=== PATIENT | female | born 1945 | race Caucasian/White ===

== ENCOUNTER 2017-04-04 06:51 | Emergency (ER) | payer MEDICARE ==
[~2017-04-04] VITALS: Ht 165.1 cm; Wt 58.0 kg
[~2017-04-04 06:51] MED LIST: BUPR-197 PO; CEPH500C3 PO; DIOV40TA PO; DIPH50TA PO; ESTR1 PO; LEVO.125 PO; NEXI40CA PO; TOPI25 PO; XANA0.5T PO; ZITH250T PO
[2017-04-04 06:58] VITALS: BP 130/59; PULSE 100; RESP 16; TEMP 98.9; O2SAT 95
[2017-04-04] MEDS ORDERED: SODIUM CHLORIDE 0.9% FLUSH 10 ML FLUSH IVF PRN (07:15)
--- NOTE | 2017-04-04 07:15 | PD ---
HPI Chief Complaint: Cold / Flu Symptoms Time Seen by Provider: 07:09 Travel History International Travel<30 days: Yes Contact w/Intl Traveler<30days: Yes Name of Country Traveled to: [facility] Traveled to known affect area: No History of Present Illness HPI patient started with an occasional cough about 2 weeks ago for which she took zpak. over the last 2 weeks she had been traveling to [facility], [place], [place] and [place] and through it all continued with cough, now deeper and more frequest , dry/nonproductive, body aches, with assoc n/v. no aggravating/alleviating factors noted. afebrile thus far. pcp is dr tayler vazquez [facility] Past Medical History Arthritis: No Asthma: Yes (CHILDHOOD) Blood Disorders: No Depression: Yes Heart Rhythm Problems: No Cancer: No Cardiovascular Problems: Yes (htn on meds) High Cholesterol: No Chest Pain: No Congestive Heart Failure: No COPD: No Cerebrovascular Accident: No Diabetes: No Diminished Hearing: No Endocrine: Yes Gastrointestinal Disorders: Yes (HIATAL HERNIA REFLUX) GERD: Yes Genitourinary: Yes (INTERSTEM SX (INCONTINENCE)) Headaches: No Hepatitis: No Hiatal Hernia: Yes Hypertension: Yes Immune Disorder: No Implanted Vascular Access Dvce: Yes Kidney Stones: No Musculoskeletal: Yes Neurologic: No Psychiatric: Yes Reproductive: Yes (HYSTERECTOMY) Respiratory: Yes (CHILDHOOD ASTHMA) Immunizations Current: Yes Migraines: No Myocardial Infarction: No Renal Failure: No Seizures: No Sleep Apnea: No Thyroid Disease: Yes Ulcer: No Dilation and Curettage (D&C): Yes Past Surgical History Abdominal Surgery: Yes (HERNIA REPAIR LAPAROSCOPY) Appendectomy: No Body Medical Devices: RODS/SCREWS IN BACK Cardiac Surgery: No Cholecystectomy: No Ear Surgery: No Endocrine Surgery: No Eye Surgery: Yes (BLEPHAROPLASTY) Genitourinary Surgery: No Gynecologic Surgery: Yes (HYSTERECTOMY BOTOX BLADDER WITH STRETCHING INTERSTEM) Hysterectomy: Yes Neurologic Surgery: No Oral Surgery: Yes (TONSILECTOMY) Thoracic Surgery: No Tonsillectomy: Yes Other Surgery: Yes ([facility] HX BREAST TUMOR RHINOPLASTY) Social History Alcohol Use: Yes (OCCASSIONAL) Tobacco Use: No Substance Use: No Allergies-Medications (Allergen,Severity, Reaction): Coded Allergies: Sulfa (Sulfonamide Antibiotics) (Unverified Allergy, Severe, THROAT CLOSES , 04/04/17) celecoxib (Unverified Allergy, Severe, DIFFICULTY BREATHING, 04/04/17) gabapentin (Unverified Allergy, Severe, SPEECH, DIZZY, 04/04/17) metoclopramide (Unverified Allergy, Severe, DIFFICULTY BREATHING,MUSCLE SPASMS, 04/04/17) naproxen (Unverified Allergy, Severe, Anaphylaxis, 04/04/17) nitrofurantoin (Unverified Allergy, Severe, RASH, 04/04/17) oxycodone (Unverified Allergy, Severe, RASH/BREATHING PROBLEMS, 04/04/17) prochlorperazine (Unverified Allergy, Severe, MUSCLE SPASM, 04/04/17) propoxyphene (Unverified Allergy, Severe, DIFFICULTY BREATHING, 04/04/17) tapentadol (Unverified Allergy, Severe, RASH, 04/04/17) tramadol (Unverified Allergy, Severe, DIFFICULTY BREATHING, 04/04/17) acetaminophen (Unverified Allergy, Intermediate, Headache, 04/04/17) ciprofloxacin (Unverified Allergy, Intermediate, MUSCLE PAIN, 04/04/17) codeine (Unverified Allergy, Intermediate, Headache, 04/04/17) doxycycline (Verified Allergy, Intermediate, RASH ON LEG, 04/04/17) eszopiclone (Verified Allergy, Intermediate, HEADACHE, ACID TASTE, HALLUCINATIONS, AGITATION, 04/04/17) hydrocodone (Unverified Allergy, Intermediate, RASH, 04/04/17) ibuprofen (Unverified Allergy, Intermediate, Nausea/Vomiting, 04/04/17) latex (Unverified Allergy, Intermediate, RASH, 04/04/17) meperidine (Unverified Allergy, Intermediate, RASH, SLIGHT FEVER, 04/04/17 ) pentazocine (Unverified Allergy, Intermediate, NAUSEA, DIZZY, HEADACHE , 04/04/17) ranibizumab (Verified Allergy, Intermediate, HEADACHE, ACID TASTE, ) adhesive (Unverified Allergy, Mild, RASH, 04/04/17) bacitracin (Unverified Allergy, Mild, RASH, 04/04/17) corn (Verified Allergy, Unknown, 04/04/17) egg (Verified Allergy, Unknown, 04/04/17) vancomycin (Unverified Allergy, Unknown, RASH, 04/04/17) zolpidem (Unverified Adverse Reaction, Intermediate, Nausea/Vomiting, ) Uncoded Allergies: LAVENDER (Allergy, Intermediate, RASH., 04/04/17) JALEN (Allergy, Intermediate, RASH., 04/04/17) ALOE (Allergy, Mild, Rash., 04/04/17) Reported Meds & Prescriptions Reported Meds & Active Scripts Active Zofran Odt (Ondansetron Odt) 4 Mg Tab 4 Mg SL Q6HR PRN Tamiflu (Oseltamivir Phosphate) 75 Mg Cap 75 Mg PO BID 5 Days Reported Estrace Vaginal (Estradiol) 0.01% Cream 1 Appl VAGINAL 3 TIMES WEEKLY Desoximetasone Topical (Desoximetasone) 0.25% Cream 1 Applic TOPICAL BID PRN Elidel 1% Topical (Pimecrolimus 1% Topical) 30 Gram Cream 1 Applic TP DIRECTED PRN Hyoscyamine (Hyoscyamine Sulfate) 0.125 Mg Tab 0.125 Mg PO Q6H PRN Maxalt (Rizatriptan Benzoate) 10 Mg Tab 10 Mg P-ARTICULR DAILY PRN Cormax Scalp Topical (Clobetasol Propionate) 0.05% Soln 1 Applic TOPICAL BID Rogaine For Women Topical (Minoxidil Topical) 2 % Soln 1 Ml TOPICAL BID Folic Acid 0.4 Mg Tab 400 Mcg PO DAILY Biotin 5 Mg Cap 5 Mg PO DAILY Tums (Calcium Carbonate (Antacid)) 500 Mg Chew 1,000 Mg CHEW DAILY Centrum Silver Women Tablet (Multivit-Min/Iron/Folic/Lutein) 8 Mg Iron-400 Mcg- 300 Mcg Tablet 1 Tab PO DAILY Plaquenil (Hydroxychloroquine Sulfate) 200 Mg Tab 200 Mg PO DAILY Take with food Lexapro (Escitalopram Oxalate) 10 Mg Tab 10 Mg PO DAILY Neurontin (Gabapentin) 100 Mg Cap 300 Mg PO BID Nexium (Esomeprazole DR) 40 Mg Capdr 40 Mg PO DAILY Xanax (Alprazolam) 0.5 Mg Tab 1.5 Mg PO HS Bupropion HCl ER 24 HR (Bupropion HCl) 300 Mg Tab 300 Mg PO DAILY Estrace (Estradiol) 1 Mg Tab 1 Mg PO DAILY Levothyroxine (Levothyroxine Sodium) 88 Mcg Tab 88 Mcg PO DAILY Topamax (Topiramate) 50 Mg Tab 100 Mg PO HS Review of Systems Except as stated in HPI: all other systems reviewed are Neg General / Constitutional: No: Fever Eyes: No: Visual changes HENT: No: Headaches Cardiovascular: No: Chest Pain or Discomfort Respiratory: Positive: Cough Gastrointestinal: Positive: Nausea, Vomiting Genitourinary: No: Dysuria Musculoskeletal: Positive: Myalgias Skin: No Rash Neurologic: No: Weakness Psychiatric: No: Depression Endocrine: No: Polydipsia Hematologic/Lymphatic: No: Easy Bruising Physical Exam Narrative GENERAL: SKIN: Warm and dry. HEAD: Atraumatic. Normocephalic. EYES: Pupils equal and round. No scleral icterus. No injection or drainage. ENT: No nasal bleeding or discharge. Mucous membranes pink and moist. NECK: Trachea midline. No JVD. CARDIOVASCULAR: Regular rate and rhythm. RESPIRATORY: No accessory muscle use. bilateral ronchi, no tachypnea, GASTROINTESTINAL: Abdomen soft, non-tender, nondistended. Hepatic and splenic margins not palpable. MUSCULOSKELETAL: Extremities without clubbing, cyanosis, or edema. No obvious deformities. NEUROLOGICAL: Awake and alert. No obvious cranial nerve deficits. Motor grossly within normal limits. Five out of 5 muscle strength in the arms and legs. Normal speech. PSYCHIATRIC: Appropriate mood and affect; insight and judgment normal. Data Data Last Documented VS Vital Signs Date Time Temp Pulse Resp B/P (MAP) Pulse Ox O2 Delivery O2 Flow Rate FiO2 04/04/17 08:02 93 16 126/46 (72) 94 Room Air 04/04/17 06:58 98.9 Orders Orders Complete Blood Count With Diff (04/04/17 07:09) Comprehensive Metabolic Panel (04/04/17 07:09) Lactic Acid Sepsis Protocol (04/04/17 07:09) Influenzae A/B Antigen (04/04/17 07:09) Blood Culture (04/04/17 07:09) Chest, Single Ap (04/04/17 07:09) Ecg Monitoring (04/04/17 07:09) Iv Access Insert/Monitor (04/04/17 07:09) Oximetry (04/04/17 07:09) Sodium Chloride 0.9% Flush (Ns Flush) (04/04/17 07:15) Sodium Chlor 0.9% 1000 Ml Inj (Ns 1000 M (04/04/17 07:30) Ondansetron Inj (Zofran Inj) (04/04/17 07:30) Ct Pulmonary Angiogram (04/04/17 07:42) Oseltamivir (Tamiflu) (04/04/17 08:15) Iohexol 350 Inj (Omnipaque 350 Inj) (04/04/17 08:44) Labs Laboratory Tests Test 04/04/17 07:25 04/04/17 07:30 White Blood Count 10.4 TH/MM3 Red Blood Count 4.48 MIL/MM3 Hemoglobin 13.0 GM/DL Hematocrit 39.3 % Mean Corpuscular Volume 87.7 FL Mean Corpuscular Hemoglobin 29.0 PG Mean Corpuscular Hemoglobin Concent 33.1 % Red Cell Distribution Width 13.1 % Platelet Count 224 TH/MM3 Mean Platelet Volume 8.4 FL Neutrophils (%) (Auto) 80.1 % Lymphocytes (%) (Auto) 7.7 % Monocytes (%) (Auto) 12.0 % Eosinophils (%) (Auto) 0.1 % Basophils (%) (Auto) 0.1 % Neutrophils # (Auto) 8.4 TH/MM3 Lymphocytes # (Auto) 0.8 TH/MM3 Monocytes # (Auto) 1.2 TH/MM3 Eosinophils # (Auto) 0.0 TH/MM3 Basophils # (Auto) 0.0 TH/MM3 CBC Comment DIFF FINAL Differential Comment Blood Urea Nitrogen 16 MG/DL Creatinine 1.00 MG/DL Random Glucose 87 MG/DL Total Protein 7.3 GM/DL Albumin 3.5 GM/DL Calcium Level 8.5 MG/DL Alkaline Phosphatase 61 U/L Aspartate Amino Transf (AST/SGOT) 14 U/L Alanine Aminotransferase (ALT/SGPT) 20 U/L Total Bilirubin 0.3 MG/DL Sodium Level 137 MEQ/L Potassium Level 3.5 MEQ/L Chloride Level 104 MEQ/L Carbon Dioxide Level 22.9 MEQ/L Anion Gap 10 MEQ/L Estimat Glomerular Filtration Rate 55 ML/MIN Lactic Acid Level 1.6 mmol/L [facility] Medical Decision Making Medical Screen Exam Complete: Yes Emergency Medical Condition: Yes Medical Record Reviewed: Yes Interpretation(s) pulse ox: on room air, good plethwave, normal reading of 96% Differential Diagnosis pna v flu v bronchitis v pe v pericardial effusion Narrative Course patient cxr neg for pna, flu positive and explains all symptoms. ct chest neg for pe, pericaridial or pleural effusion however some early infiltrates on LLL along with questionable mass like features which was explained to patient and , advised of recc to repeat in 6 months. Diagnosis Primary Impression: Influenza Patient Instructions: General Instructions, Influenza (DC) Additional Instructions: please make sure you share ct findings with dr vazquez so he will order a follow up ct chest with contrast in 6months. Scripts Ondansetron Odt (Zofran Odt) 4 Mg Tab 4 MG SL Q6HR Y for Nausea/Vomiting, #30 TAB 0 Refills Prov: Naeem Malave MD 04/04/17 Oseltamivir (Tamiflu) 75 Mg Cap 75 MG PO BID for Mgmt Viral Infection for 5 Days, #10 CAP 0 Refills Prov: Naeem Malave MD 04/04/17 Disposition: 01 DISCHARGE HOME Condition: Stable Naeem Malave MD Apr 04, 2017 07:15
--- NOTE | 2017-04-04 07:29 | RADRPT ---
EXAM DATE/TIME: 04/04/2017 07:13 [facility] COMPARISON: No previous studies available for comparison. INDICATIONS : Flu like symptoms x 2 weeks. MEDICAL HISTORY : Hypertension. Hiatal hernia. Gastroesophageal reflux disease. Asthma. Pneumonia. Thyroid disease. SURGICAL HISTORY : Tonsillectomy. Hemorrhoidectomy. Hernia repair. C & C. Lumbar surgery. Rotator cuff. Knee. ENCOUNTER: Initial ACUITY: 2 weeks PAIN SCORE: 5/10 LOCATION: chest FINDINGS: A single view of the chest demonstrates the lungs to be symmetrically aerated without evidence of mas s, infiltrate or effusion. The cardiomediastinal contours are unremarkable. Mild right thoracolumba r scoliosis. CONCLUSION: The lungs are clear. Rod Charles MD on April 04, 2017 at 7:26 Board Certified Radiologist. This report was verified electronically.
[2017-04-04] MEDS ORDERED: ONDANSETRON HCL 4 MG/2 ML VIAL IV PUSH ONE (07:30)
[2017-04-04] MEDS ORDERED: SODIUM CHLOR 0.9% 1000 ML INJ 1,000 ML IV ONE (07:30)
[2017-04-04] MEDS ORDERED: ALPR.5 PO (07:48)
[2017-04-04] MEDS ORDERED: ELID1CRE TP (07:48)
[2017-04-04] MEDS ORDERED: [UNRECOGNIZED DRUG - CODE] TOPICAL (07:48)
[2017-04-04] MEDS ORDERED: CLOB-23 TOPICAL (07:48)
[2017-04-04] MEDS ORDERED: MAXA10TA2 P-ARTICULR (07:48)
[2017-04-04] MEDS ORDERED: PLAQ200T PO (07:48)
[2017-04-04] MEDS ORDERED: LEVO88TA2 PO (07:48)
[2017-04-04] MEDS ORDERED: LEXA10TA PO (07:48)
[2017-04-04] MEDS ORDERED: HYOS1TAB9 PO (07:48)
[2017-04-04] MEDS ORDERED: FOLI400T PO (07:48)
[2017-04-04] MEDS ORDERED: TOPA50TA7 PO (07:48)
[2017-04-04] MEDS ORDERED: ESTR1 PO (07:48)
[2017-04-04] MEDS ORDERED: BUPR300T PO (07:48)
[2017-04-04] MEDS ORDERED: NEXI40CA PO (07:48)
[2017-04-04] MEDS ORDERED: MULT1TAB61 PO (07:48)
[2017-04-04] MEDS ORDERED: BIOTCAP PO (07:48)
[2017-04-04] MEDS ORDERED: ESTR42.5V VAGINAL (07:48)
[2017-04-04] MEDS ORDERED: TUMS500C CHEW (07:48)
[2017-04-04] MEDS ORDERED: DESO0.254 TOPICAL (07:48)
[2017-04-04] MEDS ORDERED: NEUR100C PO (07:48)
[2017-04-04 07:59] VITALS: RESP 16; O2SAT 95
[2017-04-04 08:01] LABS: AUTOMATED NEUTROPHIL # 8.4 TH/MM3 (1.8-7.7); BASOPHIL % 0.1 % (0.0-2.0); EOSINOPHIL % 0.1 % (0.0-4.0); HEMATOCRIT 39.3 % (35.0-46.0); LYMPH % 7.7 % (9.0-44.0); LYMPHOCYTE # 0.8 TH/MM3 (1.0-4.8); MEAN CELL VOLUME 87.7 FL (80.0-100.0); MEAN CORPUSCULAR HGB CONC 33.1 % (32.0-36.0); NEUT % 80.1 % (16.0-70.0); PLATELET COUNT 224 TH/MM3 (150-450); RED BLOOD COUNT 4.48 MIL/MM3 (4.00-5.30); RED CELL DISTRIBUTION WIDTH 13.1 % (11.6-17.2); WHITE BLOOD COUNT 10.4 TH/MM3 (4.0-11.0)
[2017-04-04 08:02] VITALS: BP 126/46; PULSE 93; RESP 16; O2SAT 94
[2017-04-04 08:02] LABS: HEMO FLAGS DIFF FINAL
[2017-04-04 08:04] LABS: CHLORIDE 104 MEQ/L (98-107); POTASSIUM 3.5 MEQ/L (3.5-5.1); SODIUM (NA) 137 MEQ/L (136-145)
[2017-04-04 08:08] LABS: ANION GAP 10 MEQ/L (5-15); BICARBONATE 22.9 MEQ/L (21.0-32.0); BLOOD UREA NITROGEN 16 MG/DL (7-18)
[2017-04-04 08:11] LABS: ALT (GPT) 20 U/L (10-53); AST (GOT) 14 U/L (15-37); GLOMERULAR FILTRATION RATE 55 ML/MIN (>89)
[2017-04-04 08:12] LABS: TOTAL BILIRUBIN ADULT 0.3 MG/DL (0.2-1.0)
[2017-04-04 08:14] LABS: ALKALINE PHOSPHATASE 61 U/L (45-117)
[2017-04-04] MEDS ORDERED: OSELTAMIVIR PHOSPHATE 75 MG CAP PO ONE (08:15)
[2017-04-04] MEDS ORDERED: IOHEXOL 350 MG/ML 10 ML VIAL (for RAD DIAG) IVCONTRAST ONE (08:44)
[2017-04-04 09:02] VITALS: BP 135/54; PULSE 93; RESP 16; O2SAT 94
--- NOTE | 2017-04-04 09:31 | RADRPT ---
EXAM DATE/TIME: 04/04/2017 08:27 [facility] COMPARISON: CTA CHEST W 3D RECON, May 15, 2010, 1:03. INDICATIONS : Cough for 2 weeks. IV CONTRAST: 50 cc Omnipaque 350 (iohexol) IV RADIATION DOSE: 6.61 CTDIvol (mGy) MEDICAL HISTORY : Hypertension. SURGICAL HISTORY : Hysterectomy. Back surgery, hernia repair ENCOUNTER: Initial ACUITY: 2 weeks PAIN SCALE: 0/10 LOCATION: chest TECHNIQUE: Volumetric scanning of the chest was performed using a pulmonary embolism protocol MIP images were re constructed. Using automated exposure control and adjustment of the mA and/or kV according to patien t size, radiation dose was kept as low as reasonably achievable to obtain optimal diagnostic quality images. DICOM format image data is available electronically for review and comparison. Follow-up recommendations for detected pulmonary nodules are based at a minimum on nodule size and pa tient risk factors according to Fleischner Society Guidelines. FINDINGS: PULMONARY ARTERIES: No filling defects are seen in the pulmonary arteries through the segmental level. LUNGS: Subsegmental multifocal patchy areas of infiltrate in the posterior segment of the left upper lobe. There is also a smaller masslike area of opacity in the medial left lower lung measuring 8 mm is seen on image #60. Some linear areas of scarring or atelectasis in the right costophrenic angle. PLEURAE: There is no pleural thickening or pleural effusion. MEDIASTINUM: There is good visualization of the great vessels of the middle mediastinum. No evidence of mediastin al or hilar adenopathy/mass. CONCLUSION: 1. The study is negative for pulmonary embolism. 2. Multifocal areas of partially consolidative infiltrate in the left lower lobe; one of these areas has masslike characteristics. Recommend followup CT to radiographic resolution. Rod Charles MD on April 04, 2017 at 9:26 Board Certified Radiologist. This report was verified electronically.
[2017-04-04] MEDS ORDERED: OSEL75 PO (09:42)
[2017-04-04] MEDS ORDERED: ZOFR4TAB3 SL (09:42)
[2017-04-04 10:14] VITALS: BP 128/58
== END 2017-04-04 10:16 | disposition home or self-care (01) ==
LOC: PHED 06:51
DX: J09.X2 Influenza due to identified novel influenza A virus with other respiratory manifestations (principal); I10 Essential (primary) hypertension; E07.9 Disorder of thyroid, unspecified
CPT/HCPCS: 71010; 71275; 80053; 83605; 85025; 87040; 87804; 96361; 96374; 99285; J2405; J7030; Q9967

== ENCOUNTER 2017-04-26 01:24 | Emergency (ER) | payer MEDICARE ==
[~2017-04-26] VITALS: Ht 162.6 cm; Wt 56.6 kg
[~2017-04-26 01:24] MED LIST changes: +ALPR.5 PO; +BIOTCAP PO; -BUPR-197 PO; +BUPR300T PO; -CEPH500C3 PO; +CLOB-23 TOPICAL; +DESO0.254 TOPICAL; -DIOV40TA PO; -DIPH50TA PO; +ELID1CRE TP; +ESTR42.5V VAGINAL; +FOLI400T PO; +HYOS1TAB9 PO; -LEVO.125 PO; +LEVO88TA2 PO; +LEXA10TA PO; +MAXA10TA2 P-ARTICULR; +MULT1TAB61 PO; +NEUR100C PO; +OSEL75 PO; +PLAQ200T PO; +TOPA50TA7 PO; -TOPI25 PO; +TUMS500C CHEW; -XANA0.5T PO; -ZITH250T PO; +ZOFR4TAB3 SL; +[UNRECOGNIZED DRUG - CODE] TOPICAL
[2017-04-26 01:33] VITALS: BP 116/58; PULSE 98; RESP 18; TEMP 97.4; O2SAT 98
[2017-04-26 01:50] VITALS: BP 110/60
[2017-04-26] MEDS ORDERED: FLUC200T2 PO (02:04)
[2017-04-26] MEDS ORDERED: METR.75%V VAGINAL (02:06)
[2017-04-26] MEDS ORDERED: FLUO0.0122 EACH EAR (02:06)
[2017-04-26] MEDS ORDERED: ONDANSETRON HCL 4 MG/2 ML VIAL IVP ONE (04:00)
[2017-04-26] MEDS ORDERED: SODIUM CHLORIDE 0.9% FLUSH 10 ML FLUSH IV FLUSH PRN (04:00)
--- NOTE | 2017-04-26 04:06 | PD ---
HPI Chief Complaint: GI Complaint Time Seen by Provider: 03:57 Travel History International Travel<30 days: Yes Contact w/Intl Traveler<30days: Yes Name of Country Traveled to: [place], [place], [place], [place] Traveled to known affect area: No History of Present Illness HPI The patient is a 71-year-old female that complains of abdominal pain, nausea, vomiting and diarrhea tonight. She had diarrhea a week ago which left her dehydrated but she does not want to be admitted to the hospital and was not admitted then. It was suspected that amoxicillin may have caused her diarrhea. She has multiple allergies. Her abdominal pain is mostly subsided at this time. She is to weigh 148 pounds and weighs slightly over 100 now. He states she did take a laxative tonight. PFSH Past Medical History Arthritis: No Asthma: Yes (CHILDHOOD) Blood Disorders: No Depression: Yes Heart Rhythm Problems: No Cancer: No Cardiovascular Problems: Yes (htn on meds) High Cholesterol: No Chest Pain: No Congestive Heart Failure: No COPD: No Cerebrovascular Accident: No Diabetes: No Diminished Hearing: No Endocrine: Yes Gastrointestinal Disorders: Yes (HIATAL HERNIA REFLUX) GERD: Yes Genitourinary: Yes (INTERSTEM SX (INCONTINENCE)) Headaches: No Hepatitis: No Hiatal Hernia: Yes Hypertension: Yes Immune Disorder: No Implanted Vascular Access Dvce: Yes Kidney Stones: No Musculoskeletal: Yes Neurologic: No Psychiatric: Yes Reproductive: Yes (HYSTERECTOMY) Respiratory: Yes (CHILDHOOD ASTHMA) Immunizations Current: Yes Migraines: Yes Myocardial Infarction: No Renal Failure: No Seizures: No Sleep Apnea: No Thyroid Disease: Yes Ulcer: No Influenza Vaccination: No (Allergic to eggs) Dilation and Curettage (D&C): Yes (X7) Past Surgical History Abdominal Surgery: Yes (HERNIA REPAIR LAPAROSCOPY) Appendectomy: No Body Medical Devices: RODS/SCREWS IN BACK Cardiac Surgery: No Cholecystectomy: No Ear Surgery: No Endocrine Surgery: No Eye Surgery: Yes (BLEPHAROPLASTY & LOWER FACE LIFT) Genitourinary Surgery: Yes (MULTIPLE BLADDER STRETCHING,INNER STEM X 2) Gynecologic Surgery: Yes (ENDOMETRIOSIS) Hysterectomy: Yes Neurologic Surgery: No Oral Surgery: Yes (TONSILECTOMY) Thoracic Surgery: No Tonsillectomy: Yes Other Surgery: Yes (BENIGN BREAST TUMOR, RHINOPLASTY, ESOPHAGEAL DILITATION) Social History Alcohol Use: Yes (OCCASSIONAL) Tobacco Use: No (FOR 1 YEAR AGE 20) Substance Use: No Allergies-Medications (Allergen,Severity, Reaction): Coded Allergies: Sulfa (Sulfonamide Antibiotics) (Unverified Allergy, Severe, THROAT CLOSES , 04/04/17) celecoxib (Unverified Allergy, Severe, DIFFICULTY BREATHING, 04/04/17) gabapentin (Unverified Allergy, Severe, SPEECH, DIZZY, 04/04/17) metoclopramide (Unverified Allergy, Severe, DIFFICULTY BREATHING,MUSCLE SPASMS, 04/04/17) naproxen (Unverified Allergy, Severe, Anaphylaxis, 04/04/17) nitrofurantoin (Unverified Allergy, Severe, RASH, 04/04/17) oxycodone (Unverified Allergy, Severe, RASH/BREATHING PROBLEMS, 04/04/17) prochlorperazine (Unverified Allergy, Severe, MUSCLE SPASM, 04/04/17) propoxyphene (Unverified Allergy, Severe, DIFFICULTY BREATHING, 04/04/17) tapentadol (Unverified Allergy, Severe, RASH, 04/04/17) tramadol (Unverified Allergy, Severe, DIFFICULTY BREATHING, 04/04/17) acetaminophen (Unverified Allergy, Intermediate, Headache, 04/04/17) ciprofloxacin (Unverified Allergy, Intermediate, MUSCLE PAIN, 04/04/17) codeine (Unverified Allergy, Intermediate, Headache, 04/04/17) doxycycline (Verified Allergy, Intermediate, RASH ON LEG, 04/04/17) eszopiclone (Verified Allergy, Intermediate, HEADACHE, ACID TASTE, HALLUCINATIONS, AGITATION, 04/04/17) hydrocodone (Unverified Allergy, Intermediate, RASH, 04/04/17) ibuprofen (Unverified Allergy, Intermediate, Nausea/Vomiting, 04/04/17) latex (Unverified Allergy, Intermediate, RASH, 04/04/17) meperidine (Unverified Allergy, Intermediate, RASH, SLIGHT FEVER, 04/04/17 ) pentazocine (Unverified Allergy, Intermediate, NAUSEA, DIZZY, HEADACHE , 04/04/17) ranibizumab (Verified Allergy, Intermediate, HEADACHE, ACID TASTE, ) adhesive (Unverified Allergy, Mild, RASH, 04/04/17) bacitracin (Unverified Allergy, Mild, RASH, 04/04/17) corn (Verified Allergy, Unknown, 04/04/17) egg (Verified Allergy, Unknown, 04/04/17) vancomycin (Unverified Allergy, Unknown, RASH, 04/04/17) zolpidem (Unverified Adverse Reaction, Intermediate, Nausea/Vomiting, ) Uncoded Allergies: LAVENDER (Allergy, Intermediate, RASH., 04/04/17) JALEN (Allergy, Intermediate, RASH., 04/04/17) ALOE (Allergy, Mild, Rash., 04/04/17) Reported Meds & Prescriptions Reported Meds & Active Scripts Active Zofran (Ondansetron HCl) 4 Mg Tab 4 Mg PO Q6HR PRN Reported Fluocinolone Otic Drops 0.01% Drops 5 Drop EACH EAR BID Vandazole Vaginal Gel (Metronidazole) 0.75 % Gel 1 Appl VAGINAL HS Fluconazole 200 Mg Tab 200 Mg PO DAILY Desoximetasone Topical (Desoximetasone) 0.25% Cream 1 Applic TOPICAL BID PRN Elidel 1% Topical (Pimecrolimus 1% Topical) 30 Gram Cream 1 Applic TP DIRECTED PRN Hyoscyamine (Hyoscyamine Sulfate) 0.125 Mg Tab 0.125 Mg PO Q6H PRN Maxalt (Rizatriptan Benzoate) 10 Mg Tab 10 Mg P-ARTICULR DAILY PRN Plaquenil (Hydroxychloroquine Sulfate) 200 Mg Tab 200 Mg PO DAILY Take with food Nexium (Esomeprazole DR) 40 Mg Capdr 40 Mg PO DAILY Xanax (Alprazolam) 0.5 Mg Tab 1.5 Mg PO HS Estrace (Estradiol) 1 Mg Tab 1 Mg PO DAILY Levothyroxine (Levothyroxine Sodium) 88 Mcg Tab 88 Mcg PO DAILY Topamax (Topiramate) 50 Mg Tab 100 Mg PO HS Review of Systems Except as stated in HPI: all other systems reviewed are Neg Physical Exam Narrative GENERAL: The patient appears moderately dehydrated, alert, oriented 3 and answers questions quickly probably. SKIN: Focused skin assessment warm/dry. There are abrasions on the left face with the patient apparently fell because of generalized weakness on Saturday. HEAD: Atraumatic. Normocephalic. EYES: Pupils equal and round. No scleral icterus. No injection or drainage. ENT: No nasal bleeding or discharge. Mucous membranes pink and moist. NECK: Trachea midline. No JVD. CARDIOVASCULAR: Regular rate and rhythm. No murmur appreciated. RESPIRATORY: No accessory muscle use. Clear to auscultation. Breath sounds equal bilaterally. GASTROINTESTINAL: Abdomen soft, with minimal discomfort all 4 quadrants, no guarding or rebound is present., nondistended. Hepatic and splenic margins not palpable. MUSCULOSKELETAL: No obvious deformities. No clubbing. No cyanosis. No edema. NEUROLOGICAL: Awake and alert. No obvious cranial nerve deficits. Motor grossly within normal limits. Normal speech. PSYCHIATRIC: Appropriate mood and affect; insight and judgment normal. Data Data Last Documented VS Vital Signs Date Time Temp Pulse Resp B/P (MAP) Pulse Ox O2 Delivery O2 Flow Rate FiO2 04/26/17 05:47 82 12 106/38 (60) 94 Room Air 04/26/17 01:33 97.4 Orders Orders Complete Blood Count With Diff (04/26/17 03:57) Comprehensive Metabolic Panel (04/26/17 03:57) Lipase (04/26/17 03:57) Lactic Acid (04/26/17 03:57) Urinalysis - C+S If Indicated (04/26/17 03:57) Iv Access Insert/Monitor (04/26/17 03:57) Ecg Monitoring (04/26/17 03:57) Oximetry (04/26/17 03:57) Ondansetron Inj (Zofran Inj) (04/26/17 04:00) Sodium Chloride 0.9% Flush (Ns Flush) (04/26/17 04:00) Sodium Chlor 0.9% 1000 Ml Inj (Ns 1000 M (04/26/17 04:00) Urine Culture (04/26/17 04:15) Sodium Chlor 0.9% 1000 Ml Inj (Ns 1000 M (04/26/17 05:15) C Diff Toxin Pcr (04/26/17 05:16) Enteric Path (Stool) (04/26/17 05:16) Giardia Antigen (Stool) (04/26/17 05:18) Sodium Chlor 0.9% 1000 Ml Inj (Ns 1000 M (04/26/17 05:30) Labs Laboratory Tests Test 04/26/17 04:00 04/26/17 04:15 04/26/17 05:00 White Blood Count 20.6 TH/MM3 Red Blood Count 4.67 MIL/MM3 Hemoglobin 13.1 GM/DL Hematocrit 40.0 % Mean Corpuscular Volume 85.7 FL Mean Corpuscular Hemoglobin 28.1 PG Mean Corpuscular Hemoglobin Concent 32.8 % Red Cell Distribution Width 13.4 % Platelet Count 135 TH/MM3 Mean Platelet Volume 9.2 FL CBC Comment AUTO DIFF Differential Total Cells Counted 100 Neutrophils % (Manual) 81 % Band Neutrophils % 10 % Lymphocytes % 4 % Monocytes % 4 % Eosinophils % 1 % Neutrophils # (Manual) 18.7 TH/MM3 Differential Comment FINAL DIFF MANUAL Platelet Estimate NORMAL Platelet Morphology Comment CLUMPED Red Cell Morphology Comment NORMAL Blood Urea Nitrogen 17 MG/DL Creatinine 0.99 MG/DL Random Glucose 102 MG/DL Total Protein 7.5 GM/DL Albumin 3.3 GM/DL Calcium Level 8.9 MG/DL Alkaline Phosphatase 77 U/L Aspartate Amino Transf (AST/SGOT) 15 U/L Alanine Aminotransferase (ALT/SGPT) 22 U/L Total Bilirubin 0.3 MG/DL Sodium Level 141 MEQ/L Potassium Level 3.3 MEQ/L Chloride Level 110 MEQ/L Carbon Dioxide Level 19.9 MEQ/L Anion Gap 11 MEQ/L Estimat Glomerular Filtration Rate 55 ML/MIN Lactic Acid Level 1.1 mmol/L Lipase 241 U/L Urine Color YELLOW Urine Turbidity CLOUDY Urine pH 5.5 Urine Specific [place] 1.030 Urine Protein NEG mg/dL Urine Glucose (UA) NEG mg/dL Urine Ketones NEG mg/dL Urine Occult Blood TRACE Urine Nitrite NEG Urine Bilirubin NEG Urine Leukocyte Esterase MOD Urine RBC 3-5 /hpf Urine WBC 100-200 /hpf Urine WBC Clumps FEW Urine Squamous Epithelial Cells 6-8 /hpf Urine Bacteria FEW /hpf Microscopic Urinalysis Comment CULTURE INDICATED MDM Medical Decision Making Medical Screen Exam Complete: Yes Emergency Medical Condition: Yes Medical Record Reviewed: Yes Interpretation(s) The complete metabolic profile shows potassium 3.3, bicarbonate of 19.9, GFR of 53 and albumen of 3.3 but is otherwise normal. The lipase is normal. The lactic acid is 1.1 which is normal. The urine shows cloudy turbidity, specific gravity 1.030, trace occult blood, moderate leukocyte esterase with 100 200 white cells and few white cell clumping's and few bacteria and culture is indicated. The CBC shows a white count of 20,600 with 81% neutrophils. Differential Diagnosis Dehydration, electrolyte disorder, gastroenteritis, medication reaction, bacterial enteritis, pyelonephritis, cystitis Narrative Course The patient has an elevated white count. This may be due to dehydration, pyelonephritis or intestinal infection-bacterial enteritis. The patient wants to avoid admission because Dr. Kapadia does not want her admitted because of her reduced immune status. Tonight we are hydrating the patient and giving her Zofran to cut back on the nausea. She will follow up later on today with Dr. Kapadia and Dr. Constantino. Apparently, Dr. Constantino has the sensitivities for the urinary infection and he will write the antibiotic. The patient has multiple allergies to many antibiotics. Dr. Kapadia did do stool cultures and we repeated these tonight with the small amount of diarrhea that the patient had. The patient's abdominal pain is almost totally resolved. She does feel much better after hydration. Diagnosis Primary Impression: Diarrhea with dehydration Additional Impression: Pyelonephritis Additional Instructions: As we discussed, follow-up with Dr. Kapadia and Dr. Constantino today. Also, drink plenty of liquids to insure a good urine flow through your kidneys. Med/Other Pt SpecificInfo: Prescription(s) given Scripts Ondansetron (Zofran) 4 Mg Tab 4 MG PO Q6HR Y for NAUSEA OR VOMITING, #30 TAB 0 Refills Prov: Edgard Cho MD 04/26/17 Disposition: 01 DISCHARGE HOME Condition: Stable Edgard Cho MD Apr 26, 2017 04:06
[2017-04-26] MEDS: SODIUM CHLOR 0.9% 1000 ML INJ 1,000 ML IV SCH ×2 (04:48→04:50)
[2017-04-26 04:50] LABS: BILIRUBIN, URINE NEG (NEG); BLOOD, URINE TRACE (NEG); GLUCOSE,URINE NEG (NEG); KETONE, URINE NEG (NEG); NITRITE,URINE NEG (NEG); PH, URINE 5.5 (5.0-8.5); URINE LEUKOCYTE ESTERASE MOD (NEG)
[2017-04-26 04:53] LABS: URINE COLOR YELLOW (YELLW/STRAW)
[2017-04-26 04:58] LABS: HEMOGLOBIN 13.1 GM/DL (11.6-15.3); MEAN CELL VOLUME 85.7 FL (80.0-100.0); MEAN CORPUSCULAR HEMOGLOBIN 28.1 PG (27.0-34.0); MEAN CORPUSCULAR HGB CONC 32.8 % (32.0-36.0); MEAN PLATELET VOLUME 9.2 FL (7.0-11.0); PLATELET COUNT 135 TH/MM3 (150-450); RED BLOOD COUNT 4.67 MIL/MM3 (4.00-5.30); RED CELL DISTRIBUTION WIDTH 13.4 % (11.6-17.2); WHITE BLOOD COUNT 20.6 TH/MM3 (4.0-11.0)
[2017-04-26 05:02] LABS: CHLORIDE 110 MEQ/L (98-107); SODIUM (NA) 141 MEQ/L (136-145)
[2017-04-26 05:03] LABS: BACTERIA, URINE FEW /hpf; WBC, URINE 100-200 /hpf (0-5); WHITE BLOOD CELL CLUMPS FEW
[2017-04-26 05:05] LABS: CALCIUM 8.9 MG/DL (8.5-10.1)
[2017-04-26 05:06] LABS: ALBUMIN 3.3 GM/DL (3.4-5.0); BICARBONATE 19.9 MEQ/L (21.0-32.0); BLOOD UREA NITROGEN 17 MG/DL (7-18); GLUCOSE,RANDOM 102 MG/DL (74-106); LIPASE 241 U/L (73-393)
[2017-04-26 05:09] LABS: ALT (GPT) 22 U/L (10-53); AST (GOT) 15 U/L (15-37); CREATININE 0.99 MG/DL (0.50-1.00); GLOMERULAR FILTRATION RATE 55 ML/MIN (>89)
[2017-04-26 05:10] LABS: TOTAL BILIRUBIN ADULT 0.3 MG/DL (0.2-1.0); TOTAL PROTEIN 7.5 GM/DL (6.4-8.2)
[2017-04-26 05:11] LABS: ALKALINE PHOSPHATASE 77 U/L (45-117)
[2017-04-26] MEDS ORDERED: SODIUM CHLOR 0.9% 1000 ML INJ 1,000 ML IV SCH ×2 (05:15→05:30)
[2017-04-26 05:19] LABS: BANDS 10 % (0-6); LYMPHOCYTES 4 % (9-44); MONOCYTES 4 % (0-8); NEUTROPHIL # MANUAL DIFF 18.7 TH/MM3 (1.8-7.7); POLYS (SEG NEUTROPHILS) 81 % (16-70)
[2017-04-26 05:46] VITALS: RESP 16; O2SAT 97
[2017-04-26 05:47] VITALS: BP 106/38; PULSE 82; RESP 12; O2SAT 94
[2017-04-26] MEDS ORDERED: ZOFR4TAB PO (05:51)
== END 2017-04-26 06:25 | disposition home or self-care (01) ==
LOC: PHED 01:24
DX: E86.0 Dehydration (principal); R19.7 Diarrhea, unspecified; N12 Tubulo-interstitial nephritis, not specified as acute or chronic; B96.1 Klebsiella pneumoniae [K. pneumoniae] as the cause of diseases classified elsewhere; I10 Essential (primary) hypertension; K21.9 Gastro-esophageal reflux disease without esophagitis; F32.9 Major depressive disorder, single episode, unspecified
CPT/HCPCS: 80053; 81001; 83605; 83690; 85007; 85027; 87077; 87086; 87186; 87329; 87493; 87506; 96361; 96374; 99284; J2405; J7030

== ENCOUNTER 2017-10-24 19:49 | Emergency (ER) | payer MEDICARE ==
[~2017-10-24] VITALS: Ht 165.1 cm; Wt 56.3 kg
[~2017-10-24 19:49] MED LIST changes: -BIOTCAP PO; -BUPR300T PO; -CLOB-23 TOPICAL; -ESTR42.5V VAGINAL; +FLUC200T2 PO; +FLUO0.0122 EACH EAR; -FOLI400T PO; -LEXA10TA PO; +METR.75%V VAGINAL; -MULT1TAB61 PO; -NEUR100C PO; -OSEL75 PO; -TUMS500C CHEW; +ZOFR4TAB PO; -ZOFR4TAB3 SL; -[UNRECOGNIZED DRUG - CODE] TOPICAL
[2017-10-24] MEDS ORDERED: IOHEXOL 350 MG/ML 10 ML VIAL (for RAD DIAG) IVCONTRAST ONE (19:50)
[2017-10-24 20:00] VITALS: BP 121/58; PULSE 86; RESP 16; TEMP 96.6
--- NOTE | 2017-10-24 20:14 | PD ---
HPI Chief Complaint: GI Complaint Time Seen by Provider: 20:13 Travel History International Travel<30 days: No Contact w/Intl Traveler<30days: No Traveled to known affect area: No History of Present Illness HPI 72-year-old female came to the emergency room with her with history of vomiting and diarrhea. Patient says that she has been having watery diarrhea for past 2-3 weeks. She has seen her GI specialist who did a GI series workup which has been negative. However since this morning she started to vomit intractably. The GI specialist did order a suppository for her vomiting but they do not know the name of this medication and they have not picked it up yet. They decided to come to the emergency room since the vomiting was getting significant. Patient says she has not somehow vomited in past 20 minutes. This is longer she has been since this morning without throwing up. She is afraid that she might be dehydrated. She was also getting intense epigastric pain along with these vomiting episodes. Vital signs are relatively stable. No radiation of the pain. Pain worsens just before the emesis. [facility] Past Medical History Narrative Medical List of her past medical, surgical, social and family history is reviewed from the nursing note. Arthritis: No Asthma: Yes (CHILDHOOD) Blood Disorders: No Depression: Yes Heart Rhythm Problems: No Cancer: No Cardiovascular Problems: Yes (htn on meds) High Cholesterol: No Chest Pain: No Congestive Heart Failure: No COPD: No Cerebrovascular Accident: No Diabetes: No Diminished Hearing: No Endocrine: Yes Gastrointestinal Disorders: Yes (HIATAL HERNIA REFLUX) GERD: Yes Genitourinary: Yes (INTERSTEM SX (INCONTINENCE)) Headaches: No Hepatitis: No Hiatal Hernia: Yes Hypertension: Yes Immune Disorder: No Implanted Vascular Access Dvce: Yes Kidney Stones: No Musculoskeletal: Yes Neurologic: No Psychiatric: Yes Reproductive: Yes (HYSTERECTOMY) Respiratory: Yes (asthma) Immunizations Current: Yes Migraines: Yes Myocardial Infarction: No Renal Failure: No Seizures: No Sleep Apnea: No Thyroid Disease: Yes Ulcer: No Dilation and Curettage (D&C): Yes (X7) Past Surgical History Abdominal Surgery: Yes (HERNIA REPAIR LAPAROSCOPY) Appendectomy: No Body Medical Devices: RODS/SCREWS IN BACK Cardiac Surgery: No Cholecystectomy: No Ear Surgery: No Endocrine Surgery: No Eye Surgery: Yes (BLEPHAROPLASTY & LOWER FACE LIFT) Genitourinary Surgery: Yes (MULTIPLE BLADDER STRETCHING,INNER STEM X 2) Gynecologic Surgery: Yes (ENDOMETRIOSIS) Hysterectomy: Yes Neurologic Surgery: No Oral Surgery: Yes (TONSILECTOMY) Thoracic Surgery: No Tonsillectomy: Yes Other Surgery: Yes (BENIGN BREAST TUMOR, RHINOPLASTY, ESOPHAGEAL DILITATION) Social History Alcohol Use: Yes (OCCASSIONAL) Tobacco Use: No (FOR 1 YEAR AGE 20) Substance Use: No Allergies-Medications (Allergen,Severity, Reaction): Coded Allergies: Sulfa (Sulfonamide Antibiotics) (Verified Allergy, Severe, 10/24/17) celecoxib (Verified Allergy, Severe, 10/24/17) metoclopramide (Verified Allergy, Intermediate, 10/24/17) Loss of muscle control prochlorperazine (Verified Allergy, Intermediate, 10/24/17) Loss of muscle control ibuprofen (Verified Allergy, Mild, 10/24/17) severe headache naproxen (Verified Allergy, Mild, 10/24/17) Headache acetaminophen (Verified Allergy, Unknown, 10/24/17) adhesive tape (Verified Allergy, Unknown, 10/24/17) amoxicillin (Verified Allergy, Unknown, 10/24/17) bacitracin (Verified Allergy, Unknown, 10/24/17) ciprofloxacin (Verified Allergy, Unknown, 10/24/17) Muscle pain diphenhydramine (Verified Allergy, Unknown, 10/24/17) doxycycline (Verified Allergy, Unknown, 10/24/17) erythromycin base (Verified Allergy, Unknown, 10/24/17) eszopiclone (Verified Allergy, Unknown, 10/24/17) gabapentin (Verified Allergy, Unknown, 10/24/17) hydrocodone (Verified Allergy, Unknown, 10/24/17) latex (Verified Allergy, Unknown, 10/24/17) nitrofurantoin (Verified Allergy, Unknown, 10/24/17) pentazocine (Verified Allergy, Unknown, 10/24/17) propoxyphene (Verified Allergy, Unknown, 10/24/17) tapentadol (Verified Allergy, Unknown, 10/24/17) tramadol (Verified Allergy, Unknown, 10/24/17) vancomycin (Verified Allergy, Unknown, 10/24/17) severe rash and welts zolpidem (Verified Allergy, Unknown, 10/24/17) hallucinations Uncoded Allergies: LAVENDER (Allergy, Intermediate, RASH., 04/04/17) JALEN (Allergy, Intermediate, RASH., 04/04/17) ALOE (Allergy, Mild, Rash., 04/04/17) Comments Extensive list of her allergies reviewed from the nursing note. Reported Meds & Prescriptions Reported Meds & Active Scripts Active Reported Baclofen 10 Mg Tab 10 Mg PO HS Fluocinolone Otic Drops 0.01% Drops 5 Drop EACH EAR BID Desoximetasone Topical (Desoximetasone) 0.25% Cream 1 Applic TOPICAL BID PRN Elidel 1% Topical (Pimecrolimus 1% Topical) 30 Gram Cream 1 Applic TP DIRECTED PRN Hyoscyamine (Hyoscyamine Sulfate) 0.125 Mg Tab 0.125 Mg PO Q6H PRN Maxalt (Rizatriptan Benzoate) 10 Mg Tab 10 Mg P-ARTICULR DAILY PRN Plaquenil (Hydroxychloroquine Sulfate) 200 Mg Tab 200 Mg PO DAILY Take with food Nexium (Esomeprazole DR) 40 Mg Capdr 40 Mg PO DAILY Xanax (Alprazolam) 0.5 Mg Tab 1.5 Mg PO HS Estrace (Estradiol) 1 Mg Tab 1 Mg PO DAILY Levothyroxine (Levothyroxine Sodium) 88 Mcg Tab 88 Mcg PO DAILY Topamax (Topiramate) 50 Mg Tab 100 Mg PO HS Narrative Medication List of her home medications reviewed from the nursing note. Review of Systems Except as stated in HPI: all other systems reviewed are Neg Gastrointestinal: Positive: Nausea, Vomiting, Diarrhea, Abdominal Pain Physical Exam Narrative GENERAL: Awake, alert, moderate distress, mass seated SKIN: Focused skin assessment warm/dry. HEAD: Atraumatic. Normocephalic. EYES: Pupils equal and round. No scleral icterus. No injection or drainage. ENT: No nasal bleeding or discharge. Dry mucous member NECK: Trachea midline. No JVD. CARDIOVASCULAR: Regular rate and rhythm. No murmur appreciated. RESPIRATORY: No accessory muscle use. Clear to auscultation. Breath sounds equal bilaterally. GASTROINTESTINAL: Abdomen soft, non-tender, nondistended. Hepatic and splenic margins not palpable. MUSCULOSKELETAL: No obvious deformities. No clubbing. No cyanosis. No edema. NEUROLOGICAL: Awake and alert. No obvious cranial nerve deficits. Motor grossly within normal limits. Normal speech. PSYCHIATRIC: Appropriate mood and affect; insight and judgment normal. Data Data Last Documented VS Orders Orders Complete Blood Count With Diff (10/24/17 20:30) Comprehensive Metabolic Panel (10/24/17 20:30) Lipase (10/24/17 20:30) Urinalysis - C+S If Indicated (10/24/17 20:30) Iv Access Insert/Monitor (10/24/17 20:30) Ecg Monitoring (10/24/17 20:30) Oximetry (10/24/17 20:30) Sodium Chlor 0.9% 1000 Ml Inj (Ns 1000 M (10/24/17 20:30) Sodium Chloride 0.9% Flush (Ns Flush) (10/24/17 20:30) Ondansetron Odt (Zofran Odt) (10/24/17 20:30) Pantoprazole Inj (Protonix Inj) (10/24/17 20:30) Ct Abd/Pel W Iv Contrast(Rout) (10/24/17 ) Electrocardiogram (10/24/17 ) Oral Contrast - Adult (10/24/17 20:45) Diatrizoate Liq ( Gastroview Liq) (10/24/17 20:53) Urine Culture (10/24/17 20:45) Blood Culture (10/24/17 21:12) Lactic Acid (10/24/17 21:12) Ceftriaxone Inj (Rocephin Inj) (10/24/17 21:15) Sodium Chlor 0.9% 1000 Ml Inj (Ns 1000 M (10/24/17 21:30) Sodium Chlor 0.9% 1000 Ml Inj (Ns 1000 M (10/24/17 22:45) Ed Discharge Order (10/24/17 23:03) Iohexol 350 Inj (Omnipaque 350 Inj) (10/24/17 19:50) Labs Laboratory Tests Test 10/24/17 20:45 10/24/17 20:47 10/24/17 21:20 Urine Color YELLOW Urine Turbidity CLOUDY Urine pH 6.0 Urine Specific [place] GREATER/EQUAL 1.030 Urine Protein TRACE mg/dL Urine Glucose (UA) NEG mg/dL Urine Ketones TRACE mg/dL Urine Occult Blood NEG Urine Nitrite NEG Urine Bilirubin NEG Urine Urobilinogen 0.2 MG/DL Urine Leukocyte Esterase SMALL Urine RBC 0-2 /hpf Urine WBC 9-14 /hpf Urine Squamous Epithelial Cells > 8 /hpf Urine Bacteria MOD /hpf Microscopic Urinalysis Comment CULTURE INDICATED White Blood Count 16.7 TH/MM3 Red Blood Count 5.37 MIL/MM3 Hemoglobin 15.5 GM/DL Hematocrit 46.7 % Mean Corpuscular Volume 86.9 FL Mean Corpuscular Hemoglobin 28.9 PG Mean Corpuscular Hemoglobin Concent 33.2 % Red Cell Distribution Width 13.9 % Platelet Count 285 TH/MM3 Mean Platelet Volume 9.1 FL Neutrophils (%) (Auto) 86.7 % Lymphocytes (%) (Auto) 3.5 % Monocytes (%) (Auto) 6.5 % Eosinophils (%) (Auto) 0.4 % Basophils (%) (Auto) 2.9 % Neutrophils # (Auto) 14.4 TH/MM3 Lymphocytes # (Auto) 0.6 TH/MM3 Monocytes # (Auto) 1.1 TH/MM3 Eosinophils # (Auto) 0.1 TH/MM3 Basophils # (Auto) 0.5 TH/MM3 CBC Comment DIFF FINAL Differential Comment Blood Urea Nitrogen 30 MG/DL Creatinine 1.40 MG/DL Random Glucose 164 MG/DL Total Protein 8.2 GM/DL Albumin 4.4 GM/DL Calcium Level 9.5 MG/DL Alkaline Phosphatase 70 U/L Aspartate Amino Transf (AST/SGOT) 15 U/L Alanine Aminotransferase (ALT/SGPT) 19 U/L Total Bilirubin 0.3 MG/DL Sodium Level 143 MEQ/L Potassium Level 3.5 MEQ/L Chloride Level 109 MEQ/L Carbon Dioxide Level 21.7 MEQ/L Anion Gap 12 MEQ/L Estimat Glomerular Filtration Rate 37 ML/MIN Lipase 269 U/L Lactic Acid Level 1.7 mmol/L [facility] Medical Decision Making Medical Screen Exam Complete: Yes Emergency Medical Condition: Yes Medical Record Reviewed: Yes Interpretation(s) Twelve-lead EKG was reviewed by me. Normal sinus rhythm, normal axis, nonspecific ST-T wave changes. Heart rate of 82 bpm. Differential Diagnosis Dehydration, electrolyte abnormality, small bowel obstruction, acute pancreatitis Narrative Course 9:07 PM awaiting for blood test result. Patient is getting IV fluid bolus and Zofran. I have ordered CT scan and waiting for the scan to be done and resulted. 11:04 PM blood test results came back and showed leukocytosis and dehydration. UA was positive for UTI. Patient was given 1 dose of IV Rocephin. Lactic acid was within normal limit. I have ordered 3 L of IV fluid bolus. Patient has not had any more vomiting or diarrhea episodes. I am comfortable discharging her home. The CT scan is read as gastric distention but otherwise negative. No signs of bowel obstruction. She needs to follow-up with a GI specialist. There is a possibility of gastric outlet syndrome which the GI specialist would need to explore. Patient is resistant to all the antibiotics that possibly could be given for UTI as an outpatient. At this point I would recommend to wait until the urine culture comes back and based on the sensitivity and her allergy list she gets the antibiotic accordingly. Procedures EKG Prior to Arrival: No Diagnosis Primary Impression: Intractable vomiting Qualified Codes: R11.2 - Nausea with vomiting, unspecified Additional Impressions: Chronic diarrhea Dehydration UTI (urinary tract infection) Qualified Codes: N39.0 - Urinary tract infection, site not specified Additional Instructions: Please follow-up with the GI specialist. If you have not had an endoscopy recently. GI specialist should get that done to rule out gastric outlet syndrome. Take the medication as per the prescription direction. Try to keep yourself hydrated. Return to the ER if condition worsens or any other new concerns. You are allergic to most of the antibiotic that would treat UTI. Based on this my recommendation would be to wait and see what the culture and sensitivity shows and accordingly treated with antibiotic that you are not allergic to. If symptoms worsen please return to the ER. Med/Other Pt SpecificInfo: Prescription(s) given Disposition: DISCHARGE HOME Condition: Stable Rashida Darby MD Oct 24, 2017 20:14
[2017-10-24] MEDS ORDERED: SODIUM CHLOR 0.9% 1000 ML INJ 1,000 ML IV SCH (20:30)
[2017-10-24] MEDS ORDERED: ONDANSETRON ODT 4 MG TAB PO ONE (20:30)
[2017-10-24] MEDS ORDERED: SODIUM CHLORIDE 0.9% FLUSH 10 ML FLUSH IV FLUSH PRN (20:30)
[2017-10-24] MEDS ORDERED: PANTOPRAZOLE SODIUM 40 MG VIAL IV PUSH ONE (20:30)
[2017-10-24] MEDS ORDERED: BACL10TA PO (20:33)
[2017-10-24] MEDS ORDERED: DIATRIZOATE MEGLUM/DIATRIZOATE SOD 9 ML CUP ONE (20:53)
[2017-10-24 20:58] LABS: BILIRUBIN, URINE NEG (NEG); BLOOD, URINE NEG (NEG); GLUCOSE,URINE NEG (NEG); KETONE, URINE TRACE mg/dL (NEG); NITRITE,URINE NEG (NEG); URINE COLOR YELLOW (YELLW/STRAW); URINE LEUKOCYTE ESTERASE SMALL (NEG)
[2017-10-24 20:58] LABS: AUTOMATED NEUTROPHIL # 14.4 TH/MM3 (1.8-7.7); BASOPHIL # 0.5 TH/MM3 (0-0.2); BASOPHIL % 2.9 % (0.0-2.0); EOSINOPHIL # 0.1 TH/MM3 (0-0.4); EOSINOPHIL % 0.4 % (0.0-4.0); HEMATOCRIT 46.7 % (35.0-46.0); HEMOGLOBIN 15.5 GM/DL (11.6-15.3); LYMPH % 3.5 % (9.0-44.0); LYMPHOCYTE # 0.6 TH/MM3 (1.0-4.8); MEAN CELL VOLUME 86.9 FL (80.0-100.0); MEAN CORPUSCULAR HEMOGLOBIN 28.9 PG (27.0-34.0); MEAN CORPUSCULAR HGB CONC 33.2 % (32.0-36.0); MEAN PLATELET VOLUME 9.1 FL (7.0-11.0); MONO % 6.5 % (0.0-8.0); MONOCYTE # 1.1 TH/MM3 (0-0.9); NEUT % 86.7 % (16.0-70.0); PLATELET COUNT 285 TH/MM3 (150-450); RED BLOOD COUNT 5.37 MIL/MM3 (4.00-5.30); RED CELL DISTRIBUTION WIDTH 13.9 % (11.6-17.2); WHITE BLOOD COUNT 16.7 TH/MM3 (4.0-11.0)
[2017-10-24 21:00] VITALS: RESP 16; O2SAT 97
[2017-10-24 21:02] LABS: BACTERIA, URINE MOD /hpf; RBC, URINE 0-2 /hpf (0-3); SQUAMOUS EPITHELIAL CELL URINE > 8 /hpf (0-5)
[2017-10-24] MEDS ORDERED: cefTRIAXone INJ 1,000 MG in SODIUM CHLORIDE 0.9% INJ 100 ML IV ONE (21:15)
[2017-10-24 21:19] LABS: CHLORIDE 109 MEQ/L (98-107); SODIUM (NA) 143 MEQ/L (136-145)
[2017-10-24 21:23] LABS: CALCIUM 9.5 MG/DL (8.5-10.1)
[2017-10-24 21:24] LABS: ALBUMIN 4.4 GM/DL (3.4-5.0); BICARBONATE 21.7 MEQ/L (21.0-32.0); BLOOD UREA NITROGEN 30 MG/DL (7-18); GLUCOSE,RANDOM 164 MG/DL (74-106)
[2017-10-24 21:27] LABS: ALT (GPT) 19 U/L (10-53); AST (GOT) 15 U/L (15-37); GLOMERULAR FILTRATION RATE 37 ML/MIN (>89)
[2017-10-24 21:28] LABS: TOTAL BILIRUBIN ADULT 0.3 MG/DL (0.2-1.0); TOTAL PROTEIN 8.2 GM/DL (6.4-8.2)
[2017-10-24 21:29] LABS: ALKALINE PHOSPHATASE 70 U/L (45-117)
[2017-10-24] MEDS ORDERED: SODIUM CHLOR 0.9% 1000 ML INJ 1,000 ML IV ONE ×2 (21:30→22:45)
[2017-10-24 22:24] VITALS: BP 122/76
--- NOTE | 2017-10-24 22:59 | RADRPT ---
EXAM DATE: 10/24/2017 10:52 PM EDT AGE/SEX: 72 years / Female INDICATIONS: Left upper quadrant pain, nausea, vomiting. CLINICAL DATA: This is the patient's initial encounter. Patient reports that signs and symptoms have been present for 1 day and indicates a pain score of 9/10. MEDICAL/SURGICAL HISTORY: Hypertension. Endometriosis, Benign breast tumor. Hysterectomy. Chris dder stretching, Stimulators. ORAL CONTRAST: Prescribed oral contrast ingested. RADIATION DOSE: 5.64 CTDI (mGy) COMPARISON: [facility], CT ABDOMEN AND PELVIS W/ CONTRAST, 10/21/2017. [facility], CT ABDOMEN AND PELVIS W AND W/O CONTRAST, 11/06/2012. . TECHNIQUE: Multiple contiguous axial images were obtained through the abdomen and pelvis following b olus infusion of 90 ml Omnipaque 350 (iohexol) nonionic water-soluble contrast as a single exam dos e. Prescribed oral contrast ingested. Using automated exposure control and adjustment of the mA and/ or kV according to patient size, the radiation dose was kept as low as reasonably achievable to obtai n optimal diagnostic quality images. FINDINGS: Lower Lungs: The visualized lower lungs are clear. Liver: The liver has a homogeneous density with multiple low-density lesions. There is no dilation of the biliary tree. Spleen: Prominent low-density measures 3.2 x 4.7 cm. Smaller density also seen more inferiorly with calcifications. Pancreas: Unremarkable without mass or calcification. Kidneys: Normal in size and shape. No evidence of mass or hydronephrosis. Adrenal Glands: Unremarkable. Aorta: The aorta and proximal iliac vessels are grossly unremarkable without aneurysmal dilation. Bowel/Mesentery: Gaseous distention of the stomach. There are mildly dilated small bowel loops witho ut definite obstruction. Fluid throughout the large bowel without obstruction. Abdominal Wall: Intact. Retroperitoneum: No evidence of adenopathy in the retrocrural, para-aortic, or deep pelvic regions. Bladder: Contours are smooth. Reproductive Organs: No abnormal masses or calcifications seen. Inguinal: The inguinal region is unremarkable without evidence of adenopathy. Bony Structures: Fusion lumbar spine. Metallic densities in the buttock regions bilaterally with roberta ds in the sacrum. CONCLUSION: 1. Distention of the stomach. 2. No bowel obstruction. 3. Multiple hepatic and splenic low densities, likely benign. Electronically signed by: David Barrera MD 10/24/2017 10:58 PM EDT
[2017-10-24 23:24] VITALS: BP 147/62; PULSE 80; RESP 16; O2SAT 100
--- NOTE | 2017-10-25 07:07 | EKG ---
Date Performed: 10/24/2017 Time Performed: 20:55:31 PTAGE: 72 years EKG: Sinus rhythm NONSPECIFIC T-WAVE ABNORMALITY BORDERLINE ECG PREVIOUS TRACING : 01/14/2016 08.46 No significant change from previous tracing noted. DOCTOR: Mauricio Walker Interpretating Date/Time 10/25/2017 07:06:03
== END 2017-10-24 23:28 | disposition home or self-care (01) ==
LOC: PHED 19:49
DX: K52.9 Noninfective gastroenteritis and colitis, unspecified (principal); E86.0 Dehydration; N39.0 Urinary tract infection, site not specified; R94.31 Abnormal electrocardiogram [ECG] [EKG]; F32.9 Major depressive disorder, single episode, unspecified; I10 Essential (primary) hypertension; K21.9 Gastro-esophageal reflux disease without esophagitis; E07.9 Disorder of thyroid, unspecified
CPT/HCPCS: 74177; 80053; 81001; 83605; 83690; 85025; 87040; 87086; 93005; 96361; 96365; 96375; 99285; C9113; J0696; J7030; Q9963; Q9967